=== PATIENT | male | born 1970 | race Caucasian/White ===

== ENCOUNTER 2019-04-16 00:20 | Day surgery (SDC) | payer BC, SELFPAY ==
[2019-04-12 12:50] VITALS: BMI 29.0
[2019-04-16 07:03] VITALS: BP 143/90; PULSE 95; RESP 18; TEMP 36.4; O2SAT 98; BMI 30.6
--- NOTE | 2019-04-16 07:15 | PM.HPGS ---
History of Present Illness History of Present Illness Consent: Risks, benefits, and alternatives have been discussed and questions answered. Patient agrees to proceed with procedure. Chief complaint: Esophagitis Narrative: Navdeep Man is a 48 year old W male undergoing gastroscopy for evaluation of combination of chronic gastroesophageal reflux disease and eosinophilic esophagitis. Patient is on Protonix 40 mg b.i.d.. He had been on steroid inhaler and oral budesonide did not no significant change in his symptoms. His last EGD 3 years ago no eosinophils were noted on biopsy. Pt. having significant difficulty with spicy foods and tomato based foods and wine. No dysphagia PMFSH Past Medical History Medical History (Updated 04/16/19 @ 07:22 by Alfred Glass MD) Diabetes Hypertension Malignant hyperthermia Surgical History Surgical History (Updated 04/16/19 @ 07:22 by Alfred Glass MD) H/O hand surgery Meds Home Medications and Allergies Home Medications Medication Instructions Recorded Confirmed Type atorvastatin 20 mg PO DAILY 04/12/19 04/12/19 History finasteride [Propecia] 1 mg PO DAILY 04/12/19 04/12/19 History hydrochlorothiazide 12.5 mg PO QAM 04/12/19 04/12/19 History losartan 100 mg PO QAM 04/12/19 04/12/19 History metformin 500 mg PO QAM 04/12/19 04/12/19 History pantoprazole 40 mg PO BID 04/12/19 04/12/19 History phentermine-topiramate [Qsymia] 1 cap PO QAM 04/12/19 04/12/19 History Allergies Allergy/AdvReac Type Severity Reaction Status Date / Time POTENTIAL FOR MALIGNANT Allergy Severe AFTER Uncoded 04/16/19 07:01 HYPERTHERMIA SURGERY DEVELOPED 108 TEMP, ICED DOWN, IN ICU 4 DAYS Vital Signs Vital Signs - 24 hr 04/16/19 07:03 Temperature 36.4 C L Pulse Rate 95 Respiratory Rate 18 Blood Pressure 143/90 H Pulse Oximetry 98 Exam Const: Orientation/consciousness: patient oriented x3 Resp: Auscultation: clear to auscultation bilaterally Cardio: Rate: regular rate Rhythm: regular rhythm Heart sounds: no murmurs GI: GI Palp: Yes Soft to palpation, No Tenderness to palpation present (GI), Yes No hepatosplenomegaly present and No Palpable mass present Auscultation: normal bowel sounds Neuro: General: patient oriented x3 and no focal motor deficits Extrem: General: no pedal edema
[2019-04-16 07:24] LABS: Glucose Point of Care 114 (65-105)
[2019-04-16] MEDS: LACTATED RINGERS 1,000 ML 150 ML IV CONT (07:24)
--- NOTE | 2019-04-16 07:38 | WPDANESEPPF ---
Anes - Initial Pre Proc Eval Procedure: Operation Date: 04/16/19 08:00 Proposed Procedures p Esophagogastroduodenoscopy - Alfred Glass MD Date/Time: 04/16/19 07:38 Surgeon: Alfred Glass MD Pre Op Diagnosis: Esophagitis Patient Data Age: 48 Gender: M Height: 5 ft 10 in Weight: 96.9 kg Last Vital Signs Temp 97.5 F L 04/16/19 07:03 Pulse 95 04/16/19 07:03 Resp 18 04/16/19 07:03 BP 143/90 H 04/16/19 07:03 Pulse Ox 98 04/16/19 07:03 Allergies Allergy/AdvReac Type Severity Reaction Status Date / Time POTENTIAL FOR MALIGNANT Allergy Severe AFTER Uncoded 04/16/19 07:01 HYPERTHERMIA SURGERY DEVELOPED 108 TEMP, ICED DOWN, IN ICU 4 DAYS Home Medications Medication Instructions Recorded Confirmed Type atorvastatin 20 mg PO DAILY 04/12/19 04/12/19 History finasteride [Propecia] 1 mg PO DAILY 04/12/19 04/12/19 History hydrochlorothiazide 12.5 mg PO QAM 04/12/19 04/12/19 History losartan 100 mg PO QAM 04/12/19 04/12/19 History metformin 500 mg PO QAM 04/12/19 04/12/19 History pantoprazole 40 mg PO BID 04/12/19 04/12/19 History phentermine-topiramate [Qsymia] 1 cap PO QAM 04/12/19 04/12/19 History Laboratory Tests 04/16/19 07:12 POC Capillary Glucose 114 mg/dl H mg/dl (65-105) Patient hx anesthesia problems: hx of malignant hyperthermia (see history) Family hx anesthesia problems: none PMFSH Past Medical History Medical History (Updated 04/16/19 @ 07:22 by Alfred Glass MD) Diabetes Hypertension Malignant hyperthermia Surgical History Surgical History (Updated 04/16/19 @ 07:22 by Alfred Glass MD) H/O hand surgery Anes - Eval Final PreProcedure Day of Procedure 04/16/19 07:38 Patient weight: normal Heart: regular rate and rhythm Lungs: clear to auscultation Airway: Mallampati scale class II Neurological: alert and oriented Last oral intake: >/= 8 hours ASA classification: III Emergent: no Anesthetic plan: proceed Anesthesia type and monitoring: general GIVS and standard monitoring Informed Consent: The patient's anesthetic plan and its attendant risks and benefits were discussed with the patient/family/POA. Questions were solicited and answers provided to the satisfaction of the patient/family/POA.
[2019-04-16 08:25] VITALS: BP 94/47; PULSE 96; RESP 16; O2SAT 96
[2019-04-16 08:35] VITALS: BP 108/66; PULSE 91; RESP 16; O2SAT 97
[2019-04-16 08:45] VITALS: BP 124/74; PULSE 95; RESP 16; O2SAT 97
[2019-04-16 08:55] VITALS: BP 128/77; PULSE 89; RESP 14; O2SAT 97
== END 2019-04-16 09:26 | disposition home or self-care (01) ==
PROVIDERS: Visit Provider Internal Medicine Gastroenterology
PROC: 0DJ08ZZ Inspection of Upper Intestinal Tract, Via Natural or Artificial Opening Endoscopic (ICD-10-PCS; CPT 43235; principal; 2019-04-16 08:00)
DX: K21.0 Gastro-esophageal reflux disease with esophagitis (principal); I10 Essential (primary) hypertension; E11.9 Type 2 diabetes mellitus without complications; Z79.84 Long term (current) use of oral hypoglycemic drugs
CPT/HCPCS: 43239; 88305; J2704; J7120